=== PATIENT | female | born 1970 | race Caucasian/White ===

== ENCOUNTER 2018-09-30 12:01 | Outpatient (CLI) | payer BC ==
--- NOTE | 2018-09-30 13:13 | ULT ---
EXAM: US Thyroid STANDARD PROVIDED CLINICAL HISTORY: Lung in throat when swallowing. Abnormal thyroid labs. COMPARISON: None FINDINGS: The right lobe of thyroid gland measures 4.8 cm x 1.5 cm x 1.6 cm with the left lobe measuring 4.4 cm x 1.6 cm x 1.7 cm. The thyroid isthmus measures 0.2 cm in AP dimensions. No discrete measurable thyroid nodule is present in either lobe of the thyroid gland. However, there is a isodense lobulated area involving the medial aspect superior pole right lobe of the thyroid gland. This could potentially represent an isoechoic nodule, this may be related to normal lobulated thyroid tissue. IMPRESSION: Slight contour abnormality and lobulation involving the anterior and medial aspect superior pole righ t lobe of the thyroid gland. This may represent normal lobulated thyroid tissue. However, if this does represent a thyroid nodule this would be classified as a TI-RADS level 3 lesion, and recommendat ion would be for follow-up evaluation in 6 months.
== END 2018-09-30 12:02 | disposition home or self-care (01) ==
LOC: BICULT 12:01
PROVIDERS: ATTEND Physician Assistant
DX: R22.1 Localized swelling, mass and lump, neck (principal); E07.89 Other specified disorders of thyroid
CPT/HCPCS: 76536

== ENCOUNTER 2018-11-22 12:36 | Outpatient (CLI) | payer BC | END 2018-11-22 12:37 | disposition home or self-care (01) | LOC: ULT 12:36 | PROVIDERS: ATTEND Internal Medicine | DX: D72.819 Decreased white blood cell count, unspecified (principal); E05.90 Thyrotoxicosis, unspecified without thyrotoxic crisis or storm; I08.1 Rheumatic disorders of both mitral and tricuspid valves; Z82.79 Family history of other congenital malformations, deformations and chromosomal abnormalities | CPT/HCPCS: 93306 ==

== ENCOUNTER 2019-04-05 09:02 | Outpatient (CLI) | payer BC ==
--- NOTE | 2019-04-05 09:32 | ULT ---
Exam: Thyroid ultrasound COMPARISON: 09/30/2018 HISTORY: There is a, patient had a feeling of a lump in the right side of the neck with swelling. Sen sation is no longer present. TECHNIQUE: Sagittal and transverse imaging of the thyroid gland is performed FINDINGS: Essentially homogeneous echotexture of the thyroid gland. Previously noted solid lobulation in the ri ght thyroid lobe is currently not appreciated. Thyroid isthmus measures 0.25 cm Right thyroid lobe measures 1.6 x 1.4 x 4.4 cm. Left thyroid lobe measures 1.6 x 1.3 x 3.9 cm. IMPRESSION: No sonographic evidence of a solid or cystic mass in the thyroid gland. Previously noted lobulation i n the lower pole of the right thyroid lobe is not currently appreciated.
== END 2019-04-05 09:03 | disposition home or self-care (01) ==
LOC: BICULT 09:02
PROVIDERS: ATTEND Internal Medicine
DX: R93.89 Abnormal findings on diagnostic imaging of other specified body structures (principal)
CPT/HCPCS: 36415; 76536; 84439; 84443; 84481; 85025

== ENCOUNTER 2024-05-10 09:57 | Outpatient (CLI) | payer BC | END 2024-05-10 09:58 | disposition home or self-care (01) | LOC: BICMAMMO 09:57 | PROVIDERS: ATTEND Internal Medicine | DX: Z12.31 Encounter for screening mammogram for malignant neoplasm of breast (principal) | CPT/HCPCS: 77063; 77067 ==